=== PATIENT | female | born 1960 | race Hispanic/Latino ===

== ENCOUNTER 2020-02-14 12:13 | Emergency (ER) | payer OTHER ==
[~2020-02-14] VITALS: Ht 152.4 cm; Wt 79.5 kg
[2020-02-14] MEDS ORDERED: LOSARTAN POTASS25 MG (12:47)
[2020-02-14] MEDS ORDERED: ATORVASTATIN CA20 MG PO (12:47)
[2020-02-14] MEDS ORDERED: LEVOTHYROXINE75 MCG PO (12:47)
[2020-02-14] MEDS ORDERED: SODIUM CHLORIDE 0.9% 1000ML 1,000 ML IV SCH ×2 (13:00→14:30)
[2020-02-14] MEDS ORDERED: SODIUM CHLORIDE 0.9% 1000ML 1,000 ML ONE ×2 (13:54→15:49)
[2020-02-14] MEDS ORDERED: TERBINAFINE HC250 MG PO (14:10)
[2020-02-14] MEDS ORDERED: AMLODIPINE BESY10 MG PO (14:10)
[2020-02-14] MEDS ORDERED: INSULIN REGULAR, HUMAN 100 UNIT/1 ML 3ML VIAL SQ ONE (14:30)
[2020-02-14 17:43] VITALS: BP 142/91
[2020-02-14] MEDS ORDERED: METFORMIN HCL500 MG PO (17:44)
== END 2020-02-14 18:00 | disposition home or self-care (01) ==
LOC: FSED 12:40
DX: E11.65 Type 2 diabetes mellitus with hyperglycemia (principal); R35.8 Other polyuria; I10 Essential (primary) hypertension; E03.9 Hypothyroidism, unspecified; E78.5 Hyperlipidemia, unspecified
CPT/HCPCS: 36415; 80048; 80076; 81003; 82948; 85025; 96372; 99283; J1817; J7030

== ENCOUNTER 2020-07-08 08:55 | Emergency (ER) | payer OTHER ==
[~2020-07-08] VITALS: Ht 152.4 cm; Wt 78.2 kg
[~2020-07-08 08:55] MED LIST: AMLODIPINE BESY10 MG PO; ATORVASTATIN CA20 MG PO; LEVOTHYROXINE75 MCG PO; LOSARTAN POTASS25 MG; METFORMIN HCL500 MG PO; TERBINAFINE HC250 MG PO
[2020-07-08] MEDS ORDERED: GLIPIZIDE5 MG PO (09:20)
[2020-07-08] MEDS ORDERED: ASPIRIN EC81 MG PO (09:20)
[2020-07-08] MEDS ORDERED: ONDANSETRON HCL INJ 2MG/ML 2ML 2 MG/ML VIAL IV STA (09:29)
[2020-07-08] MEDS ORDERED: MORPHINE SULFATE 5 MG/ML VIAL IV ONE (09:30)
[2020-07-08] MEDS ORDERED: SODIUM CHLORIDE 0.9% 1000ML 1,000 ML IV STA (09:37)
[2020-07-08] MEDS ORDERED: MORPHINE SULFATE INJ 4 MG/ML INJ 1ML ONE (09:47)
[2020-07-08] MEDS ORDERED: ONDANSETRON HCL INJ 2MG/ML 2ML 2 MG/ML VIAL ONE (09:47)
[2020-07-08] MEDS ORDERED: SODIUM CHLORIDE 0.9% 1000ML 1,000 ML ONE (09:47)
[2020-07-08] MEDS ORDERED: SODIUM CHLORIDE 0.9% 50ML 50 ML ONE (10:20)
[2020-07-08] MEDS ORDERED: IOPAMIDOL 370 MG/ML 200 ML INFUS..BTL INJ ONE (10:20)
[2020-07-08 13:19] VITALS: BP 101/55
== END 2020-07-08 13:41 | disposition other institution (70) ==
LOC: FSED 09:37
DX: U07.1 COVID-19 (principal); J18.9 Pneumonia, unspecified organism; R09.02 Hypoxemia; R05 Cough
CPT/HCPCS: 71260; 74177; 80053; 80076; 81003; 81025; 85025; 96374; 96375; 99284; J2270 ×2; J2405; J7030; Q9967; U0002